=== PATIENT | female | born 1975 | race Caucasian/White ===

== ENCOUNTER 2024-06-20 15:05 | Outpatient (CLI) | payer OTHER ==
[~2024-06-20 15:05] MED LIST: PREVACID30 MG PO
[2024-06-20 15:35] LABS: HEMATOCRIT 38.6 % (36.0-45.00); HEMOGLOBIN 13.2 g/dL (12.0-15.00); MEAN CELL VOLUME 81.5 fL (80.00-100.00); MEAN CORPUSCULAR HEMOGLOBIN 27.8 pg (27.00-32.0); MEAN CORPUSCULAR HGB CONC 34.1 g/dl (32.0-36.0); PLATELET COUNT 229 K/uL (150-450); RED BLOOD COUNT 4.74 M/uL (4.00-6.00); RED CELL DISTRIBUTION WIDTH 13.1 % (11.5-14.5)
== END 2024-06-20 15:09 | disposition home or self-care (01) ==
LOC: LAB 15:05
PROVIDERS: ATTEND Internal Medicine Gastroenterology
DX: K57.30 Diverticulosis of large intestine without perforation or abscess without bleeding (principal)

== ENCOUNTER 2024-12-27 07:03 | Outpatient (CLI) | payer OTHER | END 2024-12-27 07:38 | disposition home or self-care (01) | LOC: MAMO-SONO 07:03 | PROVIDERS: ATTEND Obstetrics & Gynecology | DX: N64.4 Mastodynia (principal) ==

== ENCOUNTER → 2025-02-25 08:34 | Outpatient (CLI) | payer OTHER ==
[2025-02-25 09:25] LABS: HEMATOCRIT 41.7 % (36.0-45.00); HEMOGLOBIN 13.8 g/dL (12.0-15.00); MEAN CELL VOLUME 83.8 fL (80.00-100.00); MEAN CORPUSCULAR HEMOGLOBIN 27.6 pg (27.00-32.0); PLATELET COUNT 213 K/uL (150-450); RED BLOOD COUNT 4.98 M/uL (4.00-6.00); RED CELL DISTRIBUTION WIDTH 13.7 % (11.5-14.5)
[2025-02-25 09:28] LABS: URINE APPEARANCE Clear; URINE BILIRRUBIN Negative (NEGATIVE); URINE BLOOD Negative; URINE COLOR Yellow; URINE GLUCOSE Negative (NEGATIVE); URINE KETONE Negative (NEGATIVE); URINE LEUKOCYTE Negative; URINE NITRATE Negative; URINE PROTEIN Negative (NEGATIVE); URINE UROBILINOGEN 0.2 E.U./dl
[2025-02-25 09:32] LABS: URINE BACTERIA 45.2 uL (0.0-1933); URINE EPITHELIAL CELLS 4.7 uL (0.0-38.8); URINE RBC 9.7 uL (0.0-20.8)
[2025-02-25 10:30] LABS: URINE WBC 1.5 uL (0.0-23.2)
[2025-02-25 10:59] LABS: ALBUMIN 3.6 gm/dL (3.4-5.0); BILIRUBIN TOTAL 0.44 mg/dL (0.3-1.2); CALCIUM 9.2 mg/dL (8.5-10.1); CHOL HDL RATIO 4.1 (0-5.0); CREATININE SERUM 0.46 mg/dL (0.55-1.02); GFR 145.61; GLOBULINA 3.6 G/DL (2.4-3.5); POTASSIUM 4.4 mEq/L (3.5-5.1); T4 TOTAL 10.17 UG/DL (4.8-13.9); TOTAL PROTEIN 7.2 gm/dL (6.4-8.2); TSH 1.15 uIU/mL (0.358-3.74)
[2025-02-25 11:53] LABS: T3 TOTAL 1.27 ng/ml (0.846-2.02); VITAMIN D3 25 HYDROXY 19.19 ng/ml (30-120)
[2025-02-26 09:10] LABS: FOLLICLE STIMULATING HORMONE 5.9 mIU/mL (.); LEUTEINIZING HORMONE 2.1 mIU/mL (.)
== END | disposition home or self-care (01) ==
LOC: LAB 08:34
PROVIDERS: ATTEND Internal Medicine
DX: I10 Essential (primary) hypertension (principal); Z01.810 Encounter for preprocedural cardiovascular examination; E03.9 Hypothyroidism, unspecified; E78.9 Disorder of lipoprotein metabolism, unspecified; E55.9 Vitamin D deficiency, unspecified; E11.51 Type 2 diabetes mellitus with diabetic peripheral angiopathy without gangrene; E11.9 Type 2 diabetes mellitus without complications; Z12.11 Encounter for screening for malignant neoplasm of colon

== ENCOUNTER 2025-09-21 08:40 | Outpatient (CLI) | payer OTHER ==
[2025-09-21 10:02] LABS: BASO % 0.3 % (0.1-1.2); EOS # 0.24 (0.04-0.54); EOS % 3.4 % (0.7-7.0); LYMPH # 2.15 (1.18-3.74); LYMPH % 30.4 % (19.3-53.1); MEAN PLATELET VOLUME 11.60 fl (9.4-12.4); MONO # 0.48 (0.24-0.82); MONO % 6.8 % (4.7-12.5); NEUT # 4.17 (1.56-6.13); NEUT % 58.8 % (34.0-71.1); RED CELL DISTRIBUTION WIDTH 12.5 % (11.6-14.4)
[2025-09-21 11:15] LABS: BUN CREA RATIO 31.0 (7.0-25.0); CHOL HDL RATIO 3.0 (0-5.0); CREATININE SERUM 0.45 mg/dL (0.55-1.02); GFR 148.71; GLUCOSE FASTING 94.0 mg/dL (65-100); HDL 58.0 mg/dl (40-60); LDL 91.0 mg/dl (0-130); OSMOLALITY SERUM 281.0 MOSM/KG (275-295); T3 UPTAKE 32.0 % (30-39); T4 TOTAL 8.92 UG/DL (4.8-13.9); TSH 1.4 uIU/mL (0.358-3.74); VLDL 24.0 (0-39)
== END 2025-09-21 08:46 | disposition home or self-care (01) ==
LOC: LAB 08:40
PROVIDERS: ATTEND Internal Medicine
DX: I10 Essential (primary) hypertension (principal); E78.9 Disorder of lipoprotein metabolism, unspecified; E55.9 Vitamin D deficiency, unspecified